=== PATIENT | male | born 1960 | race Caucasian/White ===

== ENCOUNTER 2023-05-29 16:35 | Emergency (ER) | payer OTHER ==
[~2023-05-29] VITALS: Ht 180.3 cm; Wt 72.6 kg
[2023-05-29 18:06] VITALS: BP 142/88; TEMP 98.1; O2SAT 100
== END 2023-05-29 18:07 | disposition home or self-care (01) ==
LOC: ER 16:39
DX: M79.10 Myalgia, unspecified site (principal)